=== PATIENT | female | born 1945 | race Caucasian/White ===

== ENCOUNTER 2016-09-30 07:27 | Outpatient (CLI) | payer BC, MEDICARE ==
--- NOTE | 2016-09-30 10:04 | Cat Scan Report ---
CT scan of the abdomen without IV contrast: History: Abdominal pain, ascites. Findings: Several circumscribed hypodensities liver measuring up to 2 cm in diameter suggestive of probably cysts. Patient status post cholecystectomy. Normal pancreas and spleen. Thickened wall of the stomach and duodenum probably suggestive of peptic disease. Normal adrenals. Circumscribed exophytic 1.4 cm hypodensity left kidney probably cysts. No radiopaque calculi the kidney parenchyma. No evidence of adenopathy. Normal aorta. Gaseous colon with moderate volume stool in colon. No free intraperitoneal fluid or air. Next Impression: Probable peptic disease. Hypodensities liver probably cysts. Hypodensity left kidney probably cyst.
== END 2016-09-30 07:28 | disposition home or self-care (01) ==
LOC: CT 07:27
PROVIDERS: ATTEND Internal Medicine
DX: R18.8 Other ascites (principal); R10.9 Unspecified abdominal pain; Z90.49 Acquired absence of other specified parts of digestive tract
CPT/HCPCS: 74150

== ENCOUNTER 2016-11-21 10:41 | Outpatient (CLI) | payer BC, MEDICARE ==
--- NOTE | 2016-11-21 12:06 | Ultrasound Report ---
Left breast ultrasound: The patient presents with history of MRI findings had an outside facility demonstrating focal enhancement in the lateral left breast not seen on prior ultrasound in March 2016. This serves as a followup. Imaging of the entire lateral aspect of the left breast fails to identify any echogenic abnormality at this time. Impression: No focal abnormal findings on targeted left breast ultrasound. A Recommendation: Followup should be based on your concern of MRI findings in the absence of the ultrasound findings. BI-RADS CATEGORY: 1 = Negative ACR BI-RADS MAMMOGRAPHIC CODES: 0 = Needs additional imaging evaluation; 1 = Negative; 2 = Benign; 3 = Probably benign; 4 = Suspicious; 5 = Malignant; 6 = Known biopsy-proven malignancy COMMENT: 1. Dense breast tissue, i.e., adenosis, fibrocystic changes, etc., may obscure an underlying neoplasm. 2. Approximately 10% of cancers are not detected with mammography. 3. A negative mammography report should not delay biopsy if a clinically suspicious mass is present.
== END 2016-11-21 10:42 | disposition home or self-care (01) ==
LOC: SPVWC 10:41
PROVIDERS: ATTEND Internal Medicine Hematology & Oncology
DX: R92.8 Other abnormal and inconclusive findings on diagnostic imaging of breast (principal); C50.211 Malignant neoplasm of upper-inner quadrant of right female breast; F41.1 Generalized anxiety disorder

== ENCOUNTER 2017-03-03 10:03 | Outpatient (CLI) | payer BC, MEDICARE ==
[2017-03-03 10:44] LABS: Blood Urea Nitrogen 8 mg/dL (7-17)
--- NOTE | 2017-03-03 11:54 | Magnetic Resonance Report ---
MR ABDOMEN WITH AND WITHOUT CONTRAST HISTORY: Abdominal pain. TECHNIQUE: Multiple T1 and T2-weighted images with and without fat suppression. Postcontrast dynamic imaging following 15 cc of Multihance intravenously. FINDINGS: Correlation is made with the noncontrast CT of the abdomen dated 09/30/16. The liver is normal size and contour. A left hepatic lobe cyst measures 1.5 cm. A right hepatic lobe cyst measures 1.3 cm. There also appears to be a 1 cm cavernous hemangioma in the right hepatic lobe. No evidence for suspicious liver mass, enlargement or surface nodularity. The gallbladder has been surgically removed. No biliary dilatation. Normal pancreas, spleen and adrenal glands. There are scattered bilateral renal cysts measuring up to 1.5 cm. A 1.5 cm cyst in the mid left kidney demonstrates mild hemorrhagic change. There is no evidence for renal mass or hydronephrosis. The visualized intestinal loops are normal caliber and wall thickness. The appendix is not included. The aorta is normal caliber. No evidence for ascites, acute inflammation or adenopathy. IMPRESSION: No clear explanation for abdominal pain. Liver cysts and liver hemangioma. Bilateral renal cysts as described. Cholecystectomy.
== END 2017-03-03 10:04 | disposition home or self-care (01) ==
LOC: MRI 10:03
PROVIDERS: ATTEND Internal Medicine Gastroenterology
DX: N28.1 Cyst of kidney, acquired (principal); K76.0 Fatty (change of) liver, not elsewhere classified; K59.00 Constipation, unspecified; K76.89 Other specified diseases of liver; D18.09 Hemangioma of other sites; Z90.49 Acquired absence of other specified parts of digestive tract; Z86.010 Personal history of colon polyps
CPT/HCPCS: 36415; 74183; 82565; 84520; A9577

== ENCOUNTER 2017-03-15 06:10 | Day surgery (SDC) | payer BC, MEDICARE ==
[2017-03-15] MEDS ORDERED: NACL 0.9% 1000 ML 1,000 ML ONE (07:18)
--- NOTE | 2017-03-15 07:31 | Anesthesia Consultation ---
Anesthesia Consult and Med Hx Date of service: 03/15/17 - Airway Anesthetic Teeth Evaluation: Dentures (upper) ROM Head & Neck: Adequate Mental/Hyoid Distance: Adequate Mallampati Class: Class I Intubation Access Assessment: Good - Pulmonary Exam CTA: Yes - Cardiac Exam Cardiac Exam: RRR - Pre-Operative Health Status ASA Pre-Surgery Classification: ASA2 Proposed Anesthetic Plan: MAC - Other Systems Hx Cancer: Yes (Right Breast CA s/p mastectomy )
--- NOTE | 2017-03-15 07:32 | Anesthesia Day of Surgery ---
Anesthesia Day of Surgery - Day of Surgery Patient Examined: Yes Patient H&P Reviewed: Yes Patient is NPO: Yes
[2017-03-15] MEDS ORDERED: DIPRIVAN 10 MG/ML IV ONE ×2 (07:34)
[2017-03-15] MEDS ORDERED: WATER FOR IRRIG STERILE IR ONE (07:35)
[2017-03-15] MEDS ORDERED: WATER FOR IRRIG STERILE ONE (07:35)
--- NOTE | 2017-03-15 08:34 | Short Stay Summary ---
Short Stay Documentation Date of service: 03/15/17 Narrative H&P: Ms Shankar is a 71 yo female who presents for outpatient egd and colonoscopy. She has a h/o HP and intestinal metaplasia on prior EGD. She has chronic abdominal pain and constipation. She has a h/o TV adenoma on colonoscopy ~5 years ago. Denies gi bleeding or weight loss. - History H&P: obtained from office Past Medical History: other (see H&P) Past Surgical History: Other (see H&P) Social history: no significant social history - Allergies and Medications Current Medications: Allergies No Known Allergies Allergy (Verified 03/14/17 13:41) Home Medications Medication Instructions Recorded Confirmed Last Taken Type Anastrozole (Nf) 1 mg PO DAILY 03/14/17 03/15/17 03/14/17 History Citalopram 20 mg PO DAILY 03/14/17 03/15/17 03/14/17 History Clonazepam 1 mg PO PRN PRN 03/14/17 03/15/17 Unknown History Dicyclomine 20 mg PO DAILY 03/14/17 03/14/17 Unknown History Hyoscyamine Sulfate 0.125 mg PO DAILY 03/14/17 03/14/17 Unknown History Omeprazole 40 mg PO DAILY 03/14/17 03/15/17 03/14/17 History - Physical exam General appearance: no acute distress Lungs: Clear to auscultation Heart: Regular rate, Normal S1, Normal S2 Gastrointestinal: normal, normoactive bowel sounds Extremities: No edema, Full ROM - Brief post op/procedure progress note Date of procedure: 03/15/17 Pre-op diagnosis: dyspepsia, surveillance colonoscopy (history of colon polyps) Post-op diagnosis: other (gastritis, colon polyp) Procedure: EGD with biopsies (gastritis) r/o HP Colonoscopy: 1 colon polyp removed, diverticulosis Anesthesia: MAC Findings: EGD: gastritis Colonoscopy: polyp, diverticulosis Surgeon: MAGALI TOLLIVER Estimated blood loss: minimal Pathology: list (Jar A - gastric biopsies, Jar B - colon polyp (descending colon )) Specimen disposition: to lab Condition: stable - Disposition Disposition: TO HOME OR SELFCARE Short Stay Discharge Plan Follow up with: RAO AGUILAR MD [Primary Care Provider] - 7 Days
--- NOTE | 2017-03-15 08:37 | Operative Report ---
Operative Report Operative Report: EGD with Biopsies Date of procedure: 03/15/2017 Endoscopist: Dylan Gardner Pre-op diagnosis: dyspepsia, h/o gastric intestinal metaplasia Post-op diagnosis: gastritis MAC: Monitored anesthesia care Complications: no immediate complications Estimated blood loss: minimal Procedure: After consent was obtained, the patient was placed in the left lateral decubitus position. The upper fujinon endoscope was inserted into the patient's mouth under direct vision, and advanced to the 2nd portion of duodenum without difficulty. The patient tolerated the procedure well. The patient's vital signs were monitored continously throughout the procedure. Findings: The esophagus appeared normal. Mild erythematous mucosa in the gastric body and antrum. Biopsies were obtained to evaluate for H pylori. Otherwise, the stomach appeared normal. The duodenum appeared normal. Impression: 1. Gastritis. Biopsied Recommendations: -follow-up pathology -treat for H pylori if biopsies positive -avoid NSAIDs -colonoscopy to follow
--- NOTE | 2017-03-15 08:39 | Post Anesthesia Evaluation ---
- Post Anesthesia Evaluation Patient Participated: Yes Airway Patent: Yes Stable Respiratory Function: Yes Temp > 96.8F: Yes Pain Manageable: Yes Adequeate Hydration: Yes Anesthesia Complications: No
--- NOTE | 2017-03-15 08:40 | Operative Report ---
Operative Report Operative Report: Colonoscopy with snare polypectomy Date of procedure: 03/15/2017 Endoscopist: Dylan Gardner Pre-op diagnosis: surveillance colonoscopy (personal history of tubulovillous adenoma) Post-op diagnosis: colon polyp, diverticulosis MAC: Monitored anesthesia care Complications: no immediate complications Estimated blood loss: minimal Procedure: After consent was obtained, the patient was placed in the left lateral decubitus position. The pediatric fujinon colonoscope was inserted into the patient's rectum under direct vision, and advanced to the cecum without difficulty. The patient tolerated the procedure well. The patient's vital signs were monitored continously throughout the procedure. The quality of prep was good. Findings: There was one sessile polyp, ~6 mm, in the descending colon. The polyp was removed with cold snare polypectomy. The polyp was retrieved. Left sided diverticulosis. Impression: 1. Colon polyp removed as above 2. Diverticulosis Recommendations: -follow-up pathology -high fiber diet daily -repeat colonoscopy for surveillance in 3-5 years (based on pathology results) -return to GI clinic as previously scheduled
[2017-03-15 08:57] VITALS: BP 165/58
[2017-03-15] MEDS ORDERED: ROBINUL ONE (10:00)
[2017-03-15] MEDS ORDERED: XYLOCAINE MPF 2% ONE (10:00)
== END 2017-03-15 06:11 | disposition home or self-care (01) ==
LOC: GIO 06:10
PROVIDERS: ATTEND Internal Medicine Gastroenterology
DX: Z09 Encounter for follow-up examination after completed treatment for conditions other than malignant neoplasm (principal); K63.5 Polyp of colon; K29.40 Chronic atrophic gastritis without bleeding; K57.30 Diverticulosis of large intestine without perforation or abscess without bleeding; F41.9 Anxiety disorder, unspecified; F32.9 Major depressive disorder, single episode, unspecified; Z90.710 Acquired absence of both cervix and uterus; Z86.010 Personal history of colon polyps; Z85.038 Personal history of other malignant neoplasm of large intestine; Z90.49 Acquired absence of other specified parts of digestive tract; Z90.10 Acquired absence of unspecified breast and nipple; Z79.899 Other long term (current) drug therapy; Z85.3 Personal history of malignant neoplasm of breast
CPT/HCPCS: 43239; 45385; 88305; 88342; J2704; J7030

== ENCOUNTER 2017-05-03 12:00 | Outpatient (CLI) | payer BC, MEDICARE ==
--- NOTE | 2017-05-03 13:18 | Mammography Report ---
LEFT DIGITAL DIAGNOSTIC MAMMOGRAM WITH CAD: 05/03/17 12:00:00 CLINICAL: Breast cancer survivor status post right mastectomy. Previous left benign biopsy. COMPARISON:06/01/16 mammogram from [facility] FINDINGS: The breast is mostly fatty with a few retroareolar heterogeneously dense fibroglandular densities.A slightly inner lower biopsy clip with an asymmetry of the clip. No mass, architectural distortion or suspicious calcifications. IMPRESSION: No mammographic evidence of malignancy. BI-RADS CATEGORY: 2 -- Benign RECOMMENDATION: Routine mammographic screening. ACR BI-RADS MAMMOGRAPHIC CODES: 0 = Needs additional imaging evaluation; 1 = Negative; 2 = Benign; 3 = Probably benign; 4 = Suspicious; 5 = Malignant; 6 = Known biopsy-proven malignancy COMMENT: 1. Dense breast tissue, i.e., adenosis, fibrocystic changes, etc., may obscure an underlying neoplasm. 2. Approximately 10% of cancers are not detected with mammography. 3. A negative mammography report should not delay biopsy if a clinically suspicious mass is present. COMMENT: Patient follow-up letters are generated via our [employer] Nurse Navigator application.
--- NOTE | 2017-05-04 08:16 | Cat Scan Report ---
CT CHEST WITH CONTRAST: 05/03/17 12:00:00 CLINICAL: History of right breast cancer status post right mastectomy. Swelling and pain at the right fourth rib. Comparison: None. TECHNIQUE: Volumetric acquisition and 1.25 mm scan reconstructions after the uneventful intravenous injection of 100cc Omnipaque 300. Consent was obtained prior to the administration of contrast. FINDINGS: Status post right mastectomy with normal chest wall and ribs. The lungs are normally expanded and clear. No pulmonary nodule or mass. Normal heart and aorta. No hilar or mediastinal lymphadenopathy. No pleural effusion. Normal thyroid, trachea and esophagus. No axillary or supraclavicular lymphadenopathy. Status post cholecystectomy. Benign hepatic cysts. The largest cyst is in the right lobe at the diaphragm contiguous to cavoatrial junction and measures 2 cm. IMPRESSION: 1. Status post right mastectomy with normal chest wall and ribs. 2. No explanation for pain and swelling at the right fourth rib. 3. No evidence of disease recurrence or metastasis. 4. Benign hepatic cysts. 5. Status post cholecystectomy.
--- NOTE | 2017-05-05 07:46 | Cat Scan Report ---
CT UPPER EXTREMITY LEFT WITHOUT CONTRAST HISTORY: Breast cancer, right shoulder pain, right axillary pain, right fourth rib pain and swelling. TECHNIQUE: Helical CT with sagittal and coronal reformatted images to the right shoulder. FINDINGS: Correlation is made with the CT chest with contrast performed the same day. The right mastectomy changes are partially imaged on this exam. No abnormality is detected in the right upper chest or right axillary region. No inflammation, mass or adenopathy. The bony structures are borderline osteopenic. There are mild age-appropriate osteoarthritic changes at the right shoulder but no evidence for fracture, malalignment or bone lesion. The rotator cuff is grossly intact on CT. No large joint effusion. IMPRESSION: Essentially unremarkable CT of the right shoulder for age. Minor osteoarthritic changes are identified. No evidence for mass, adenopathy, fracture or inflammation.
== END 2017-05-03 12:01 | disposition home or self-care (01) ==
LOC: CT 12:00
DX: R92.8 Other abnormal and inconclusive findings on diagnostic imaging of breast (principal); M19.011 Primary osteoarthritis, right shoulder; K76.89 Other specified diseases of liver; J98.6 Disorders of diaphragm; Z90.11 Acquired absence of right breast and nipple; Z90.49 Acquired absence of other specified parts of digestive tract
CPT/HCPCS: 71260; 73200; 77065; Q9967

== ENCOUNTER 2017-09-18 06:53 | Day surgery (SDC) | payer BC, MEDICARE ==
[2017-09-18] MEDS ORDERED: ZOFRAN IV PRN (09:12)
--- NOTE | 2017-09-18 09:13 | Anesthesia Day of Surgery ---
Anesthesia Day of Surgery - Day of Surgery Patient Examined: Yes Patient H&P Reviewed: Yes Patient is NPO: Yes
--- NOTE | 2017-09-18 09:14 | Anesthesia Consultation ---
Anesthesia Consult and Med Hx Date of service: 09/18/17 - Airway Anesthetic Teeth Evaluation: Good ROM Head & Neck: Adequate Mental/Hyoid Distance: Adequate Mallampati Class: Class II Intubation Access Assessment: Probably Good - Pulmonary Exam CTA: Yes - Cardiac Exam Cardiac Exam: RRR - Pre-Operative Health Status ASA Pre-Surgery Classification: ASA3 Proposed Anesthetic Plan: General - Other Systems Hx Cancer: Yes (Right Breast CA s/p mastectomy )
[2017-09-18] MEDS ORDERED: ANCEF/STERILE WATER 2 GM/20 ML IV NR (09:18)
[2017-09-18] MEDS ORDERED: VERSED IV NR (10:00)
[2017-09-18] MEDS ORDERED: LACTATED RINGERS 1,000 ML IV SCH (10:00)
[2017-09-18] MEDS ORDERED: SUBLIMAZE ONE (11:15)
[2017-09-18] MEDS ORDERED: DIPRIVAN 10 MG/ML IV ONE (11:15)
[2017-09-18] MEDS ORDERED: XYLOCAINE MPF 2% ONE (11:17)
[2017-09-18] MEDS ORDERED: ZOFRAN ONE (11:36)
[2017-09-18] MEDS ORDERED: DECADRON ONE (12:05)
--- NOTE | 2017-09-18 12:21 | Operative Report ---
PREOPERATIVE DIAGNOSES: 1. Right chest wall pannus. 2. Intertrigo. 3. Cicatrix. 4. History of breast cancer, status post right modified radical mastectomy. 5. Acquired breast deformity. POSTOPERATIVE DIAGNOSES: 1.Right chest wall pannus. 2.Intertrigo. 3.Cicatrix. 4.History of breast cancer, status post right modified radical mastectomy. 5.Acquired breast deformity. PROCEDURE: Right chest wall lumpectomy. SURGEON: Garth Fox MD ACCESS CONTROL SPECIALIST: DANTE Wiley. DESCRIPTION OF PROCEDURE: The patient was brought to the operating room, placed on the table in supine position. Following administration of general anesthesia, the right chest was prepped with Betadine solution, draped in usual sterile manner. Following preoperative markings. Circumferential incision was made around the chest wall pannus, deepened through skin and subcutaneous fat using scalpel and electrocautery. Tissue sent to pathology as specimen. Hemostasis controlled using electrocautery. Closure was performed over 10 mm STEPHANIE drain using interrupted and running subcuticular 3-0 Monocryl sutures followed by Mastisol, Steri-Strips, sterile dressing. The patient tolerated procedure well and returned to recovery room in stable condition. JOB# [id number] FTW/RUPAL
[2017-09-18] MEDS: DILAUDID IV PRN ×2 (13:12→14:20)
[2017-09-18 15:09] VITALS: BP 146/59
--- NOTE | 2017-09-18 17:48 | Post Anesthesia Evaluation ---
- Post Anesthesia Evaluation Patient Participated: Yes Airway Patent: Yes Stable Respiratory Function: Yes Nausea/Vomiting: No Temp > 96.8F: Yes Pain Manageable: Yes Adequeate Hydration: Yes Anesthesia Complications: No
--- NOTE | 2017-09-18 18:48 | Discharge Summary ---
Short Stay Discharge Plan Activity: no restrictions Weight Bearing Status: Full Weight Bearing Diet: regular Wound: remove dressing (72hrs) Additional Instructions: FOLLOW UP WITH DR. MCKEON IN 1 WEEK. REMOVE EXTERNAL DRESSING (TAPE AND GAUZE) IN 3 DAYS (09/21/17). LEAVE STERI- STRIPS INTACT. OK TO SHOWER WHEN EXTERNAL DRESSING HAS BEEN REMOVED. Follow up with: JOANN MCKEON JR, MD [Staff Physician] - 7 Days RAO AGUILAR MD [Primary Care Provider] - 6 Weeks Forms: Outpatient Surgery DC Inst.
--- NOTE | 2017-09-18 18:49 | Short Stay Summary ---
Short Stay Documentation Date of service: 09/18/17 - Allergies and Medications Current Medications: Allergies gabapentin Adverse Reaction (Verified 09/18/17 08:18) Nausea PT STATES INSOMNIA, INCREASED HEART RATE oxycodone Adverse Reaction (Verified 09/18/17 08:18) Unknown PT STATES HEART RACES AND SHE GETS NAUSEATED Home Medications Medication Instructions Recorded Confirmed Last Taken Type Anastrozole (Nf) 1 mg PO DAILY 03/14/17 09/18/17 09/18/17 06:00 History Citalopram 20 mg PO DAILY 03/14/17 09/18/17 09/17/17 History Clonazepam 1 mg PO PRN PRN 03/14/17 09/18/17 09/17/17 History Dicyclomine 20 mg PO DAILY PRN 03/14/17 09/18/17 4 Months Ago History ~05/21/17 Hyoscyamine Sulfate 0.125 mg PO DAILY PRN 03/14/17 09/18/17 3 Months Ago History ~06/18/17 Omeprazole 40 mg PO DAILY PRN 03/14/17 09/18/17 3 Days Ago History ~09/15/17 Denosumab [Prolia] 60 mg SUB-Q [id number] 09/18/17 09/18/17 5 Months Ago History ~04/20/17 Linzess 290 mcg PO PRN PRN 09/18/17 09/18/17 2 Months Ago History ~07/19/17 traMADol 50 mg PO PRN PRN MDD 50 09/18/17 09/18/17 3 Days Ago History ~09/15/17 - Brief post op/procedure progress note Date of procedure: 09/18/17 Pre-op diagnosis: Panniculitis/Intertrigo/Breast Cancer Hx Post-op diagnosis: same Procedure: RT Chestwall Lipectomy Anesthesia: GETA Surgeon: JOANN MCKEON JR Estimated blood loss: minimal Specimen disposition: to lab Condition: stable - Disposition Condition at discharge: Good Disposition: [id number] TO HOME OR SELFCARE Short Stay Discharge Plan Additional Instructions: FOLLOW UP WITH DR. MCKEON IN 1 WEEK. REMOVE EXTERNAL DRESSING (TAPE AND GAUZE) IN 3 DAYS (09/21/17). LEAVE STERI- STRIPS INTACT. OK TO SHOWER WHEN EXTERNAL DRESSING HAS BEEN REMOVED. Follow up with: JOANN MCKEON JR, MD [Staff Physician] - 7 Days LAUREN,RAO L, MD [Primary Care Provider] - 6 Weeks Forms: Outpatient Surgery DC Inst.
== END 2017-09-18 16:24 | disposition home or self-care (01) ==
LOC: OR 06:53
PROVIDERS: ATTEND Plastic Surgery
DX: L90.5 Scar conditions and fibrosis of skin (principal); N64.89 Other specified disorders of breast; F32.9 Major depressive disorder, single episode, unspecified; Z86.718 Personal history of other venous thrombosis and embolism; Z85.3 Personal history of malignant neoplasm of breast; Z90.11 Acquired absence of right breast and nipple; Z79.01 Long term (current) use of anticoagulants; Z88.5 Allergy status to narcotic agent
CPT/HCPCS: 19260; 88305; J0690; J1100; J1170; J2250; J2405; J2704; J3010; J7120; 88307

== ENCOUNTER 2018-05-02 10:51 | Outpatient (CLI) | payer BC, MEDICARE ==
[2018-05-02 11:15] LABS: Hematocrit 42.1 % (30.3-42.9); Hemoglobin 14.3 gm/dl (10.1-14.3); Mean Corpuscular HGB Conc 34 % (30-34); Mean Corpuscular Volume 90 fl (79-97); Platelet Count 229 K/mm3 (140-440); Red Blood Count 4.68 M/mm3 (3.65-5.03); Red Cell Distribution Width 13.6 % (13.2-15.2)
[2018-05-02 11:36] LABS: Alanine Aminotransferase 21 units/L (7-56); BUN/Creatinine Ratio 19; Blood Urea Nitrogen 13 mg/dL (7-17); Calcium 9.4 mg/dL (8.4-10.2); Hemolysis Index 5
--- NOTE | 2018-05-02 12:08 | Mammography Report ---
BONE DENSITY STUDY: Breast malignancy. DEFINITIONS: BMD = Bone Mineral Density T-score = BMD related to mean peak bone mass of young adult (mean expressed in Standard Deviation) Z-score = Age matched BMD expressed in SD World Health Organization (WHO) Diagnostic Criteria Normal T-score > -1 SD Osteopenia T-score between -1 and -2.4 SD Osteoporosis T-score -2.5 SD or below FINDINGS: The weighted average BMD of lumbar spine L1-L4 is 0.781 with a T-score of -2.4. The weighted average BMD of hip is 0.853 with a T-score of -0.7. The femoral neck BMD is 0.585 with a T. value score of -2.4. IMPRESSION: patient's average T-score is diagnostic for osteopenia and average relative risk for fracture. It is of note that this patient is on the borderline for being osteoporotic. NOTE: BMD is not the only risk factor for fracture; also consider factors such as the patient's age, risk of falling, previous osteoporotic fracture, family history of osteoporotic fractures, current smoker, and low body weight. Garrison's triangle is a region of interest in femur, predominantly of trabecular bone. It is not a true anatomic site, and ISCD does not recommend its use clinically.
== END 2018-05-02 10:52 | disposition home or self-care (01) ==
LOC: MAMMO 10:51
PROVIDERS: ATTEND Internal Medicine Hematology & Oncology
DX: C50.411 Malignant neoplasm of upper-outer quadrant of right female breast (principal); M85.88 Other specified disorders of bone density and structure, other site; K21.9 Gastro-esophageal reflux disease without esophagitis; Z90.49 Acquired absence of other specified parts of digestive tract; Z90.710 Acquired absence of both cervix and uterus; Z90.12 Acquired absence of left breast and nipple
CPT/HCPCS: 36415; 77080; 80053; 84443; 85027

== ENCOUNTER 2018-08-03 10:23 | Day surgery (SDC) | payer BC, MEDICARE ==
[2018-08-03] MEDS ORDERED: NEOSPORIN GU IR ONE (11:13)
[2018-08-03] MEDS ORDERED: LACTATED RINGERS 1,000 ML ONE (11:28)
--- NOTE | 2018-08-03 12:12 | Anesthesia Consultation ---
Anesthesia Consult and Med Hx Date of service: 08/03/18 - Airway Anesthetic Teeth Evaluation: Good ROM Head & Neck: Adequate Mental/Hyoid Distance: Adequate Mallampati Class: Class II Intubation Access Assessment: Good - Pulmonary Exam CTA: Yes - Cardiac Exam Cardiac Exam: RRR - Pre-Operative Health Status ASA Pre-Surgery Classification: ASA3 Proposed Anesthetic Plan: General - Pulmonary Hx Smoking: Yes (STOPPED 2001) Hx Asthma: No Hx Sleep Apnea: No (LILY PRE SCREEN LOW RISK) - Cardiovascular System Hx Hypertension: No - Central Nervous System Hx Neuromuscular Disorder: No - Endocrine Hx Renal Disease: No Hx End Stage Renal Disease: No Hx Liver Disease: Yes (FATTY LIVER) - Other Systems Hx Cancer: Yes (Right Breast CA s/p mastectomy )
[2018-08-03] MEDS ORDERED: SUBLIMAZE IV PRN (12:13)
[2018-08-03] MEDS ORDERED: ZOFRAN IV PRN (12:13)
[2018-08-03] MEDS ORDERED: NARCAN 0.4 MG/1 ML IV PRN (12:13)
--- NOTE | 2018-08-03 12:13 | Anesthesia Day of Surgery ---
Anesthesia Day of Surgery - Day of Surgery Patient Examined: Yes Patient H&P Reviewed: Yes Patient is NPO: Yes Beta Blockers: No Cardiac Clearance: No Pulmonary Clearance: No
[2018-08-03] MEDS ORDERED: MARCAINE 0.5% INFILTRATI ONE ×3 (12:39→13:37)
[2018-08-03] MEDS ORDERED: DEPO-Medrol ONE (12:39)
[2018-08-03] MEDS ORDERED: SUBLIMAZE ONE (12:49)
[2018-08-03] MEDS ORDERED: XYLOCAINE MPF 2% ONE (12:49)
[2018-08-03] MEDS ORDERED: DIPRIVAN 10 MG/ML IV ONE (12:49)
[2018-08-03] MEDS ORDERED: ZOFRAN ONE (12:49)
[2018-08-03] MEDS ORDERED: DECADRON ONE (12:49)
[2018-08-03] MEDS ORDERED: LACTATED RINGERS 1,000 ML IV SCH (13:00)
[2018-08-03] MEDS ORDERED: ANCEF/STERILE WATER 2 GM/20 ML IV NR (13:00)
[2018-08-03] MEDS ORDERED: DEPO-Medrol INTRA-ARTI ONE (13:36)
[2018-08-03] MEDS: DILAUDID IV PRN ×4 (14:09→15:09)
--- NOTE | 2018-08-03 15:02 | Procedure Note ---
Date of procedure: 08/03/18 Pre-op diagnosis: trigger finger left thumb Post-op diagnosis: same Procedure: Trigger finger release left thumb Procedure The patient was brought to the OR placed on table in supine position following induction with Mac anesthesia the patient's left upper extremity was prepped and draped in the usual sterile manner. A timeout procedure was done to identify the patient and the correct operative site. The right thumb received an intra- articular injection with 40 mg of Depo-Medrol and half percent Marcaine into the metacarpal phalangeal joint. The left upper extremity was then exsanguinated followed by inflation of the pneumatic tourniquet to 250 mmHg. An incision was made at the A1 anitha level using loupe magnification incision was taken down through skin and subcutaneous care was taken to visualize the neurovascular structures the flexor tendon was seen and the A1 anitha sheath was incised with the 15 blade and tenotomy scissors care was taken to release as much restricting tissue as possible next the wound was irrigated copiously and was closed in a standard routine fashion. Dressings were applied patient tolerated the procedure there were no complications Anesthesia: MAC Surgeon: KENTRELL MCKEON Team Driver: CAROLINE RUSSELL Estimated blood loss: minimal Pathology: none Condition: stable Disposition: PACU
[2018-08-03 16:26] VITALS: BP 158/62
== END 2018-08-03 16:10 | disposition home or self-care (01) ==
LOC: OR 10:23
PROVIDERS: ATTEND Orthopaedic Surgery
DX: M65.312 Trigger thumb, left thumb (principal); K21.9 Gastro-esophageal reflux disease without esophagitis; F32.9 Major depressive disorder, single episode, unspecified; F41.9 Anxiety disorder, unspecified; Z80.8 Family history of malignant neoplasm of other organs or systems; Z79.899 Other long term (current) drug therapy; Z87.891 Personal history of nicotine dependence; Z90.49 Acquired absence of other specified parts of digestive tract; Z85.3 Personal history of malignant neoplasm of breast; Z90.11 Acquired absence of right breast and nipple; Z90.710 Acquired absence of both cervix and uterus; Z98.890 Other specified postprocedural states; Z88.8 Allergy status to other drugs, medicaments and biological substances
CPT/HCPCS: 20600; 26055; J0690; J1030; J1100; J1170; J2405; J2704; J3010; J7120

== ENCOUNTER 2018-10-12 16:42 | Emergency (ER) | payer BC, MEDICARE ==
[2018-10-12 19:38] LABS: Basophils % (Auto) 0.5 % (0.0-1.8); Eosinophils # (Auto) 0.1 K/mm3 (0.0-0.4); Eosinophils % (Auto) 1.1 % (0.0-4.3); Hematocrit 42.5 % (30.3-42.9); Hemoglobin 14.2 gm/dl (10.1-14.3); Lymphocytes # (Auto) 1.6 K/mm3 (1.2-5.4); Lymphocytes % (Auto) 15.8 % (13.4-35.0); Mean Corpuscular HGB Conc 33 % (30-34); Mean Corpuscular Volume 91 fl (79-97); Monocytes # (Auto) 0.7 K/mm3 (0.0-0.8); Platelet Count 226 K/mm3 (140-440); Red Blood Count 4.68 M/mm3 (3.65-5.03); Red Cell Distribution Width 14.5 % (13.2-15.2)
--- NOTE | 2018-10-12 20:07 | Emergency Department Report ---
ED Female HPI - General Chief complaint: Urogenital-Female Stated complaint: BACK PAIN/CYST Time Seen by Provider: 10/12/18 19:04 Source: patient Mode of arrival: Ambulatory Limitations: No Limitations - History of Present Illness Initial comments: Patient is a 73-year-old female with history of recurrent cystitis and urinary retention who presents from urinary retention times this a.m. states unable/12:00 today Secondary history of constipation patient denies nausea vomiting no fevers no chills Complaint: dysuria Onset/Timin -: days(s) Location: suprapubic Radiation: LLQ, RLQ Severity: moderate Severity scale (0 -10): 4 (spasm) Quality: cramping Consistency: constant Improves with: urination Worsens with: none Are you Now?: No - Related Data Home Medications Medication Instructions Recorded Confirmed Last Taken Anastrozole (Nf) 1 mg PO DAILY 03/14/17 08/03/18 08/02/18 09:00 Citalopram 20 mg PO DAILY 03/14/17 08/03/18 08/02/18 09:00 Clonazepam 1 mg PO PRN PRN 03/14/17 08/01/18 03/15/18 Omeprazole 40 mg PO PRN PRN 03/14/17 08/01/18 03/15/18 Linzess 290 mcg PO PRN PRN 09/18/17 08/01/18 03/09/18 Previous Rx's Medication Instructions Recorded Last Taken Type HYDROcodone/APAP 5-325 [[place] 1 each PO Q4HR PRN #20 tablet 08/03/18 Unknown Rx 5-325 mg TAB] Bisacodyl [Dulcolax suppos] 10 mg AL QDAY PRN #5 supp.rect 10/12/18 Unknown Rx Ciprofloxacin HCl [Ciprofloxacin 500 mg PO BID 10 Days #20 tab 10/12/18 Unknown Rx TAB] Polyethylene Glycol 3350 [Miralax 17 gm PO BID PRN #14 packet 10/12/18 Unknown Rx 3350] Allergies Allergy/AdvReac Type Severity Reaction Status Date / Time gabapentin Allergy Nausea,INCREASED Verified 10/12/18 16:45 HEART RATE,INSOMNIA oxycodone Allergy HIGH HEART Verified 10/12/18 16:45 RATE, NAUSEA ED Review of Systems ROS: Stated complaint: BACK PAIN/CYST Other details as noted in HPI Constitutional: denies: chills, fever Eyes: denies: eye pain, eye discharge, vision change ENT: denies: ear pain, throat pain Respiratory: denies: cough, shortness of breath, wheezing Cardiovascular: denies: chest pain, palpitations Endocrine: no symptoms reported Gastrointestinal: denies: abdominal pain (superpubic , bilat Lower Quad ), nausea, vomiting, diarrhea Genitourinary: urgency, dysuria. denies: frequency, hematuria, discharge Musculoskeletal: denies: back pain, joint swelling, arthralgia Skin: denies: rash, lesions Neurological: denies: headache, weakness, paresthesias Psychiatric: denies: anxiety, depression Hematological/Lymphatic: denies: easy bleeding, easy bruising ED Past Medical Hx - Past Medical History Hx Hypertension: No Hx GERD: Yes (PRN MEDS) Hx Liver Disease: Yes (FATTY LIVER) Hx Renal Disease: No Hx Asthma: No Hx HIV: No - Surgical History Hx Cholecystectomy: Yes Hx Breast Surgery: Yes (BX 1986,2008,2015,2016) - Social History Smoking Status: Never Smoker Substance Use Type: None - Medications Home Medications: Home Medications Medication Instructions Recorded Confirmed Last Taken Type Anastrozole (Nf) 1 mg PO DAILY 03/14/17 08/03/18 08/02/18 09:00 History Citalopram 20 mg PO DAILY 03/14/17 08/03/18 08/02/18 09:00 History Clonazepam 1 mg PO PRN PRN 03/14/17 08/01/18 03/15/18 History Omeprazole 40 mg PO PRN PRN 03/14/17 08/01/18 03/15/18 History Linzess 290 mcg PO PRN PRN 09/18/17 08/01/18 03/09/18 History HYDROcodone/APAP 5-325 [[place] 1 each PO Q4HR PRN #20 tablet 08/03/18 Unknown Rx 5-325 mg TAB] Bisacodyl [Dulcolax suppos] 10 mg AL QDAY PRN #5 supp.rect 10/12/18 Unknown Rx Ciprofloxacin HCl [Ciprofloxacin 500 mg PO BID 10 Days #20 tab 10/12/18 Unknown Rx TAB] Polyethylene Glycol 3350 [Miralax 17 gm PO BID PRN #14 packet 10/12/18 Unknown Rx 3350] ED Physical Exam - General Limitations: No Limitations General appearance: alert, in no apparent distress - Head Head exam: Present: atraumatic, normocephalic - Eye Eye exam: Present: normal appearance, PERRL, EOMI Pupils: Present: normal accommodation - ENT ENT exam: Present: mucous membranes moist - Neck Neck exam: Present: normal inspection, full ROM. Absent: tenderness - Respiratory Respiratory exam: Present: normal lung sounds bilaterally. Absent: respiratory distress, wheezes, chest wall tenderness - Cardiovascular Cardiovascular Exam: Present: regular rate, normal rhythm, normal heart sounds. Absent: systolic murmur, diastolic murmur, rubs, gallop - GI/Abdominal GI/Abdominal exam: Present: distended (mild distended ), normal bowel sounds. Absent: tenderness, guarding, rebound, rigid, bruit, hernia - Rectal Rectal exam: Present: deferred - Extremities Exam Extremities exam: Present: normal inspection, full ROM, normal capillary refill. Absent: tenderness, pedal edema, joint swelling, calf tenderness - Back Exam Back exam: Present: normal inspection, full ROM. Absent: tenderness, CVA tenderness (R), CVA tenderness (L), muscle spasm, paraspinal tenderness, vertebral tenderness, rash noted - Neurological Exam Neurological exam: Present: alert, oriented X3, CN II-XII intact, normal gait, reflexes normal. Absent: motor sensory deficit - Psychiatric Psychiatric exam: Present: normal affect, normal mood - Skin Skin exam: Present: warm, dry, intact, normal color. Absent: rash ED Course Vital Signs 10/12/18 10/12/18 17:03 20:25 Temperature 97.5 F L 98.5 F Pulse Rate 85 91 H Respiratory 18 18 Rate Blood Pressure 128/64 Blood Pressure 110/62 [Left] O2 Sat by Pulse 94 98 Oximetry ED Medical Decision Making - Lab Data Result diagrams: 10/12/18 19:16 - Radiology Data Radiology results: report reviewed, image reviewed moderate constipation no evidence or obstruction - Medical Decision Making KUB: moderate constipation, no evidence of obstruction, bs normal, ua: urine approx 200 cc, UA: leuk, wbc, rbc, bacteria, plan: Miralax , dulcolax supp, Cipro po bid x 10 days, pt given rocephin 1gm IM in ed will follow up with pcp in 2-3 days , will return to ed if symptoms worsen or unable to void, , pt is voiding at this time. Critical care attestation.: If time is entered above; I have spent that time in minutes in the direct care of this critically ill patient, excluding procedure time. ED Disposition Clinical Impression: UTI (urinary tract infection) Qualifiers: Urinary tract infection type: acute cystitis Hematuria presence: without hematuria Qualified Code(s): N30.00 - Acute cystitis without hematuria Constipation Qualifiers: Constipation type: unspecified constipation type Qualified Code(s): K59.00 - Constipation, unspecified Disposition: TO HOME OR SELFCARE Is pt being admited?: No Does the pt Need Aspirin: No Condition: Stable Instructions: Urinary Tract Infection in Women (ED), Constipation (ED), High Fiber Diet (ED) Prescriptions: Ciprofloxacin HCl [Ciprofloxacin TAB] 500 mg PO BID 10 Days #20 tab Bisacodyl [Dulcolax suppos] 10 mg AL QDAY PRN #5 supp.rect PRN Reason: Constipation Polyethylene Glycol 3350 [Miralax 3350] 17 gm PO BID PRN #14 packet PRN Reason: Constipation Referrals: CHRISS COSTA MD [Primary Care Provider] - 3-5 Days Forms: Work/School Release Form(ED) Time of Disposition: 21:31
--- NOTE | 2018-10-12 20:44 | XRay Report ---
ABDOMEN 2 VIEW(S) INDICATION / CLINICAL INFORMATION: abd pain. COMPARISON: None available. FINDINGS: TUBES / LINES: None. BOWEL GAS PATTERN: Moderate amount of solid stool throughout colon characteristic for constipation. N o obstruction. FREE AIR / EXTRALUMINAL GAS: None seen. ADDITIONAL FINDINGS: Cholecystectomy clips right upper quadrant. IMPRESSION: 1. Moderate constipation. No acute abdominal disease Signer Name: Cordell Maki MD Signed: 10/12/2018 8:40 PM Workstation Name: [id number]
[2018-10-12] MEDS ORDERED: BENTYL IM ONE (20:57)
[2018-10-12 20:58] LABS: Bacteria,Urine 4+ /HPF (Negative); Mucus,Urine 3+ /HPF
[2018-10-12 20:59] LABS: Bilirubin,Urine NEG (Negative); Blood,Urine SM (Negative); Color,Urine Amber (Yellow); Urobilinogen,Urine < 2.0 mg/dL (<2.0)
[2018-10-12] MEDS ORDERED: XYLOCAINE 1% MPF 5 mL INFILTRATI ONE (21:24)
[2018-10-12] MEDS ORDERED: ROCEPHIN IM ONE (21:24)
[2018-10-12 22:11] VITALS: BP 134/62
== END 2018-10-12 22:23 | disposition home or self-care (01) ==
LOC: ED 16:42
DX: N30.90 Cystitis, unspecified without hematuria (principal); K59.00 Constipation, unspecified; K21.9 Gastro-esophageal reflux disease without esophagitis; Z87.19 Personal history of other diseases of the digestive system; Z90.49 Acquired absence of other specified parts of digestive tract; Z98.890 Other specified postprocedural states; Z88.8 Allergy status to other drugs, medicaments and biological substances; Z79.899 Other long term (current) drug therapy
CPT/HCPCS: 36415; 51702; 74018; 81001; 85025; 87076; 87086; 87186; 96372; 99284; J0500; J0696

== ENCOUNTER 2018-10-13 14:53 | Emergency (ER) | payer BC, MEDICARE ==
--- NOTE | 2018-10-13 15:04 | Event Note ---
ED Screening Note Date of service: 10/13/18 Time: 15:03 ED Screening Note: seen yesterday for the same abd pain and constipation. This initial assessment/diagnostic orders/clinical plan/treatment(s) is/are subject to change based on patients health status, clinical progression and re-assessment by fellow clinical providers in the ED. Further treatment and workup at subsequent clinical providers discretion. Patient/guardian urged not to elope from the ED as their condition may be serious if not clinically assessed and managed. Initial orders include:
[2018-10-13] MEDS ORDERED: NACL 0.9% 500 ML 500 ML ONE ×2 (15:06)
[2018-10-13] MEDS ORDERED: ROCEPHIN/NS 1 GM/50 ML 1 GM/50 ML BAG IV ONE (16:09)
[2018-10-13] MEDS ORDERED: ZOFRAN IV ONE (16:10)
[2018-10-13] MEDS ORDERED: NACL 0.9% 1000 ML 1,000 ML IV ONE (16:10)
[2018-10-13 16:55] LABS: Basophils % (Auto) 0.4 % (0.0-1.8); Eosinophils # (Auto) 0.1 K/mm3 (0.0-0.4); Eosinophils % (Auto) 1.4 % (0.0-4.3); Hematocrit 40.5 % (30.3-42.9); Hemoglobin 13.8 gm/dl (10.1-14.3); Lymphocytes % (Auto) 20.6 % (13.4-35.0); Mean Corpuscular HGB Conc 34 % (30-34); Mean Corpuscular Volume 90 fl (79-97); Monocytes # (Auto) 0.6 K/mm3 (0.0-0.8); Platelet Count 209 K/mm3 (140-440); Red Blood Count 4.51 M/mm3 (3.65-5.03); Red Cell Distribution Width 14.2 % (13.2-15.2)
--- NOTE | 2018-10-13 17:00 | Emergency Department Report ---
<COLE WOOTEN - Last Filed: 10/13/18 20:50> ED Abdominal Pain HPI - General Chief Complaint: Abdominal Pain Stated Complaint: CONSTIPATION Time Seen by Provider: 10/13/18 15:16 - Related Data Home Medications Medication Instructions Recorded Confirmed Last Taken Anastrozole (Nf) 1 mg PO DAILY 03/14/17 08/03/18 08/02/18 09:00 Citalopram 20 mg PO DAILY 03/14/17 08/03/18 08/02/18 09:00 Clonazepam 1 mg PO PRN PRN 03/14/17 08/01/18 03/15/18 Omeprazole 40 mg PO PRN PRN 03/14/17 08/01/18 03/15/18 Linzess 290 mcg PO PRN PRN 09/18/17 08/01/18 03/09/18 Previous Rx's Medication Instructions Recorded Last Taken Type HYDROcodone/APAP 5-325 [[place] 1 each PO Q4HR PRN #20 tablet 08/03/18 Unknown Rx 5-325 mg TAB] Bisacodyl [Dulcolax suppos] 10 mg OR QDAY PRN #5 supp.rect 10/12/18 Unknown Rx Ciprofloxacin HCl [Ciprofloxacin 500 mg PO BID 10 Days #20 tab 10/12/18 Unknown Rx TAB] Polyethylene Glycol 3350 [Miralax 17 gm PO BID PRN #14 packet 10/12/18 Unknown Rx 3350] Magnesium Citrate [Citroma] 296 ml PO ONCE #1 bottle 10/13/18 Unknown Rx Allergies Allergy/AdvReac Type Severity Reaction Status Date / Time gabapentin Allergy Nausea,INCREASED Verified 10/12/18 16:45 HEART RATE,INSOMNIA oxycodone Allergy HIGH HEART Verified 10/12/18 16:45 RATE, NAUSEA ED Past Medical Hx - Medications Home Medications: Home Medications Medication Instructions Recorded Confirmed Last Taken Type Anastrozole (Nf) 1 mg PO DAILY 03/14/17 08/03/18 08/02/18 09:00 History Citalopram 20 mg PO DAILY 03/14/17 08/03/18 08/02/18 09:00 History Clonazepam 1 mg PO PRN PRN 03/14/17 08/01/18 03/15/18 History Omeprazole 40 mg PO PRN PRN 03/14/17 08/01/18 03/15/18 History Linzess 290 mcg PO PRN PRN 09/18/17 08/01/18 03/09/18 History HYDROcodone/APAP 5-325 [[place] 1 each PO Q4HR PRN #20 tablet 08/03/18 Unknown Rx 5-325 mg TAB] Bisacodyl [Dulcolax suppos] 10 mg OR QDAY PRN #5 supp.rect 10/12/18 Unknown Rx Ciprofloxacin HCl [Ciprofloxacin 500 mg PO BID 10 Days #20 tab 10/12/18 Unknown Rx TAB] Polyethylene Glycol 3350 [Miralax 17 gm PO BID PRN #14 packet 10/12/18 Unknown Rx 3350] Magnesium Citrate [Citroma] 296 ml PO ONCE #1 bottle 10/13/18 Unknown Rx ED Medical Decision Making - Lab Data Result diagrams: 10/13/18 16:13 10/13/18 16:13 - Radiology Data Radiology results: report reviewed, image reviewed Ordering Physician: TORRIE KENT MD Date of Service: 10/13/18 Procedure(s): CT abdomen pelvis w con Accession Number(s): [id number] cc: TORRIE KENT MD CT ABDOMEN AND PELVIS WITH CONTRAST INDICATION: Pain CONTRAST: Unspecified dosage IV COMPARISON: 09/30/[address] scans at this location are performed using CT dose reduction for ALARA by means of automated exposure control. FINDINGS: Lung bases are clear of infiltrates. Small cysts and probable cysts are seen in the liver. Gallbladder has been removed. No biliary dilatation is seen. Pancreas appears within normal limits. Small bilateral renal cysts and probable cysts are noted. Appendix is not visualized. Mild increase in colonic stool burden is seen suggesting constipation. No evidence of bowel obstruction is seen. Small amount of nonspecific fluid is seen in the right colon. There is slight question of mild wall thickening in the proximal right colon though without definite surrounding inflammation and this may be artifactual. No lymphadenopathy is seen. No free fluid is noted. IMPRESSION: Probable mild constipation. I would have difficulty excluding mild right colitis though probably this is artifactual. Signer Name: Stephan Singh MD Signed: 10/13/2018 6:52 PM Workstation Name: [id number] Transcribed By: GJ Dictated By: Stephan Singh MD Electronically Authenticated By: Stephan Singh MD Signed Date/Time: 07/1851 DD/ 45 TD/TT: - Medical Decision Making ct : no obstruction moderate stool, pt given fleet enema in ed with some output pain is improved, pt rx for miralax and dulcolax at home, will follow up with GI, pt is currently a/o x 3 ambulatory tolerating po intake, no n/v no fever no chills pt dc't to home in stable conditions with family member at this time. ED Disposition Clinical Impression: Constipation Disposition: DC-01 TO HOME OR SELFCARE Is pt being admited?: No Does the pt Need Aspirin: No Condition: Stable Instructions: Constipation (ED), High Fiber Diet (ED), Abdominal Pain (ED) Prescriptions: Magnesium Citrate [Citroma] 296 ml PO ONCE #1 bottle Referrals: [facility] [Provider Group] - 3-5 Days Time of Disposition: 20:52 <TORRIE KENT - Last Filed: 11/01/18 05:35> ED Abdominal Pain HPI - General Source: patient Mode of arrival: Ambulatory Limitations: No Limitations - History of Present Illness Initial Comments: Reports that she came to the ER for same complaints yesterday where she was diagnosed with UTI. Reports compliant with cipro. Reports symptoms feel similar to a past diverticulitis. Reports hx appendectomy MD Complaint: abdominal pain -: days(s) (2 approximately) Location: suprapubic Radiation: none Migration to: no migration Severity: mild Severity scale (0 -10): 2 Quality: aching Consistency: intermittent Improves With: nothing Worsens With: nothing Associated Symptoms: nausea. denies: vomiting, diarrhea, fever, chills, constipation, dysuria, hematemesis, hematochezia, melena, hematuria, anorexia, syncope ED Review of Systems ROS: Stated complaint: CONSTIPATION Other details as noted in HPI Other: GENERAL: No weight change, fatigue, weakness, fever, chills, or night sweats SKIN: No changes in skin or hair, no itching, no rashes, no jaundice HEAD: No trauma, headache, or visual changes EYES: No blurriness, tearing, itching, acute visual loss, conjunctival discoloration, or scleral icterus EARS: No hearing loss, tinnitus, vertigo, or earache NOSE: No rhinorrhea, stuffiness, sneezing, itching, or epistaxis MOUTH: No bleeding gums, hoarseness, sore throat, or swelling CARDIAC: No new murmur, chest pain, palpitations, dyspnea on exertion, orthopnea, PND, or edema RESPIRATORY: No shortness of breath, wheeze, cough, sputum production, hemoptysis, pneumonia, asthma, bronchitis, or emphysema GI: Abdominal pain and nausea. No change in appetite, vomiting, dysphagia, change in bowel frequency, diarrhea, constipation, bleeding, hematemesis, melena, hematochezia URINARY: No frequency, urgency, polyuria, dysuria, hematuria, or incontinence MUSCULOSKELETAL: No muscle weakness, joint stiffness, decrease in range of motion, redness, swelling NEUROLOGIC: No loss of sensation, numbness, tingling, tremors, weakness, paralysis, seizures HEMATOLOGIC: No anemia, easy bruising, bleeding, petechiae, or purpura ENDOCRINE: No hot or cold intolerance, sweating, polyuria, polydipsia or, polyphagia no thyroid problems PSYCHIATRIC: No change in mood, no anxiety, no depression ED Past Medical Hx - Past Medical History Previous Medical History?: Yes Hx Hypertension: No Hx GERD: Yes (PRN MEDS) Hx Liver Disease: Yes (FATTY LIVER) Hx Renal Disease: No Hx Asthma: No Hx HIV: No - Surgical History Hx Cholecystectomy: Yes Hx Breast Surgery: Yes (BX 1986,2008,2016,2017) - Social History Smoking Status: Never Smoker ED Physical Exam - General Limitations: No Limitations - Other Other exam information: GENERAL: Patient in no acute distress HEAD: Normocephalic, atraumatic EYES: PERRLA, EOM intact, no scleral icterus, no papilledema, no conjunctival hemorrhage, visual beebe and acuity wnl, NOSE: No tenderness, discharge, sinus tenderness MOUTH: No erythema, bleeding, exudate HEART: Regular rate and rhythm, no murmur, S1-S2 are auscultated, pulses are symmetric LUNGS: No wheezing, rales, rhonchi, bilateral breath sounds ABDOMEN: Mild suprapubic tenderness. Normal bowel sounds, no rebound, no guarding, no masses, no CVA tenderness MUSCULOSKELETAL: Normal joint range of motion, no redness, no swelling, no ten derness NEUROLOGIC: GCS 15, Alert and Oriented x3, Cranial nerves intact, normal sensation, normal strength, normal gait, no cerebellar deficit SKIN: Skin is warm and dry, no wounds, no rashes ED Course Vital Signs 10/13/18 10/13/18 10/13/18 14:59 16:37 17:48 Temperature 97.6 F Pulse Rate 82 84 Respiratory 20 18 17 Rate Blood Pressure 157/74 Blood Pressure [Left] Blood Pressure 125/64 [Right] O2 Sat by Pulse 95 100 Oximetry 10/13/18 10/13/18 18:38 21:50 Temperature Pulse Rate 74 77 Respiratory 17 18 Rate Blood Pressure Blood Pressure 117/64 [Left] Blood Pressure 168/64 [Right] O2 Sat by Pulse 100 97 Oximetry ED Medical Decision Making - Lab Data Result diagrams: 10/13/18 16:13 10/13/18 16:13 Laboratory Results - last 24 hr 10/13/18 16:13 WBC 9.7 RBC 4.51 Hgb 13.8 Hct 40.5 MCV 90 MCH 31 MCHC 34 RDW 14.2 Plt Count 209 Lymph % (Auto) 20.6 [place] % (Auto) 6.0 Eos % (Auto) 1.4 Baso % (Auto) 0.4 Lymph # 2.0 [place] # 0.6 Eos # 0.1 Baso # 0.0 Seg Neutrophils % 71.6 H Seg Neutrophils # 6.9 - Medical Decision Making At 1707 patient signed out to midlevel Ta who agrees to follow up on labs and CT results and re-evaluate. Critical care attestation.: If time is entered above; I have spent that time in minutes in the direct care of this critically ill patient, excluding procedure time. ED Disposition Is pt being admited?: No
[2018-10-13] MEDS ORDERED: TORADOL IV ONE (17:18)
[2018-10-13 17:21] LABS: Alanine Aminotransferase 18 units/L (7-56); Albumin 3.9 g/dL (3.9-5); BUN/Creatinine Ratio 15; Blood Urea Nitrogen 12 mg/dL (7-17); Hemolysis Index 3
[2018-10-13 17:40] LABS: Bilirubin,Urine NEG (Negative); Blood,Urine NEG (Negative); Color,Urine Yellow (Yellow); Protein,Urine <15 mg/dL mg/dL (Negative); Urobilinogen,Urine < 2.0 mg/dL (<2.0)
--- NOTE | 2018-10-13 18:56 | Cat Scan Report ---
CT ABDOMEN AND PELVIS WITH CONTRAST INDICATION: Pain CONTRAST: Unspecified dosage IV COMPARISON: 09/30/[address] scans at this location are performed using CT dose reduction for ALARA by means of automated e xposure control. FINDINGS: Lung bases are clear of infiltrates. Small cysts and probable cysts are seen in the liver. Gallbladder has been removed. No biliary dilatation is seen. Pancreas appears within normal limits. S mall bilateral renal cysts and probable cysts are noted. Appendix is not visualized. Mild increase in colonic stool burden is seen suggesting constipation. No evidence of bowel obstruction is seen. Smal l amount of nonspecific fluid is seen in the right colon. There is slight question of mild wall thick ening in the proximal right colon though without definite surrounding inflammation and this may be ar tifactual. No lymphadenopathy is seen. No free fluid is noted. IMPRESSION: Probable mild constipation. I would have difficulty excluding mild right colitis though p robably this is artifactual. Signer Name: Stephan Singh MD Signed: 10/13/2018 6:52 PM Workstation Name: [id number]
[2018-10-13] MEDS ORDERED: FLEET PR ONE (19:39)
[2018-10-13 21:51] VITALS: BP 117/64
== END 2018-10-13 21:51 | disposition home or self-care (01) ==
LOC: ED 14:53
DX: K59.00 Constipation, unspecified (principal); R10.2 Pelvic and perineal pain; K21.9 Gastro-esophageal reflux disease without esophagitis; K76.0 Fatty (change of) liver, not elsewhere classified; Z98.890 Other specified postprocedural states; Z90.49 Acquired absence of other specified parts of digestive tract; Z79.899 Other long term (current) drug therapy; Z88.6 Allergy status to analgesic agent; Z88.8 Allergy status to other drugs, medicaments and biological substances
CPT/HCPCS: 36415; 74177; 80053; 81001; 82140; 83690; 84484; 85025; 87040; 87086; 96365; 96366; 96375; 99284; J0696; J1885; J2405; J7030; J7040; Q9967

== ENCOUNTER 2018-10-17 10:17 | Outpatient (CLI) | payer BC, MEDICARE ==
--- NOTE | 2018-10-17 12:53 | Magnetic Resonance Report ---
MRI LEFT KNEE WITHOUT CONTRAST INDICATION: M25.562. PAIN IN LEFT KNEE. COMPARISON: None available. TECHNIQUE: Multiplanar, multisequence MR images were obtained. FINDINGS: ACL: Normal. PCL: Normal. DISTAL QUADRICEPS TENDON: Normal. PATELLAR TENDON: Normal. MEDIAL MENISCUS: There is a horizontal tear of the posterior horn and junctional zone of the medial m eniscus with a tiny 2 mm parameniscal cyst. LATERAL MENISCUS: Mild intrasubstance signal without discrete tear. POSTEROLATERAL CORNER: Normal. MCL: Normal. LCL: Normal. DISTAL BICEPS FEMORIS TENDON: Normal. POPLITEUS TENDON: Normal. DISTAL IT BAND: Normal. ARTICULAR CARTILAGE: Mild chondrosis with subchondral cystic change in the posterior aspect of the me dial tibial plateau. No focal full-thickness cartilage loss. JOINT SPACE: No significant joint effusion or synovitis. No popliteal cyst. INTRA-ARTICULAR BODIES: None. BONES: No bone marrow edema. No fracture. No osseous lesion. SOFT TISSUES: No acute findings. ADDITIONAL FINDINGS: None. IMPRESSION: 1. Horizontal tear of the posterior horn and junctional zone of the medial meniscus with tiny adjacen t para meniscal cyst. 2. Mild chondrosis in the medial femorotibial compartment. Signer Name: Ravi Galvan MD Signed: 10/17/2018 12:49 PM Workstation Name: [id number]
== END 2018-10-17 10:18 | disposition home or self-care (01) ==
LOC: MRI 10:17
PROVIDERS: ATTEND Orthopaedic Surgery
DX: S83.242A Other tear of medial meniscus, current injury, left knee, initial encounter (principal); X58.XXXA Exposure to other specified factors, initial encounter; Y93.89 Activity, other specified; Y92.89 Other specified places as the place of occurrence of the external cause; Y99.8 Other external cause status
CPT/HCPCS: 73721

== ENCOUNTER 2018-11-15 08:48 | Day surgery (SDC) | payer BC, MEDICARE ==
[~2018-11-15 08:48] MED LIST: ANCEF/STERILE WATER 2 GM/20 ML IV NR; DEPO-Medrol INTRA-ARTI ONE; MARCAINE-EPI/PF 0.5%-1:200,000 IJ ONE
--- NOTE | 2018-11-15 09:40 | Anesthesia Consultation ---
Anesthesia Consult and Med Hx Date of service: 11/15/18 - Airway Anesthetic Teeth Evaluation: Dentures (top) ROM Head & Neck: Adequate Mental/Hyoid Distance: Adequate Mallampati Class: Class II Intubation Access Assessment: Probably Good - Pulmonary Exam CTA: Yes - Cardiac Exam Cardiac Exam: RRR - Pre-Operative Health Status ASA Pre-Surgery Classification: ASA2 Proposed Anesthetic Plan: General - Pulmonary Hx Smoking: Yes (STOPPED 2001) Hx Respiratory Symptoms: No Hx Sleep Apnea: No (LILY PRE SCREEN LOW RISK) - Cardiovascular System Hx Hypertension: No Hx Heart Attack/AMI: No Hx Percutaneous Transluminal Coronary Angioplasty (PTCA): No Hx Cardia Arrhythmia: No - Central Nervous System Hx Neuromuscular Disorder: No Hx Seizures: No CVA: No - Gastrointestinal Hx Gastroesophageal Reflux Disease: Yes (controlled) - Endocrine Hx Renal Disease: No Hx Liver Disease: No (FATTY LIVER) Hx Insulin Dependent Diabetes: No Hx Non-Insulin Dependent Diabetes: No Hx Thyroid Disease: No - Other Systems Hx Cancer: Yes (Right Breast CA s/p mastectomy ) Hx Obesity: Yes - Additional Comments Anesthesia Medical History Comments: No hx anesthetic complications.
--- NOTE | 2018-11-15 09:41 | Anesthesia Day of Surgery ---
Anesthesia Day of Surgery - Day of Surgery Patient Examined: Yes Patient H&P Reviewed: Yes Patient is NPO: Yes
[2018-11-15] MEDS ORDERED: TYLENOL PO NR (10:00)
[2018-11-15] MEDS ORDERED: LACTATED RINGERS 1,000 ML IV SCH (10:00)
[2018-11-15] MEDS ORDERED: MARCAINE-EPI 0.5%-1:200,000 INFILTRATI ONE (11:10)
[2018-11-15] MEDS ORDERED: VERSED ONE (11:50)
[2018-11-15] MEDS ORDERED: XYLOCAINE MPF 2% ONE (11:51)
[2018-11-15] MEDS ORDERED: SUBLIMAZE ONE ×2 (11:51→12:46)
[2018-11-15] MEDS ORDERED: DIPRIVAN 10 MG/ML IV ONE ×2 (11:51→12:36)
[2018-11-15] MEDS ORDERED: MARCAINE-EPI/PF 0.5%-1:200,000 IJ ONE (12:33)
[2018-11-15] MEDS ORDERED: DEPO-Medrol INTRA-ARTI ONE (12:33)
[2018-11-15] MEDS ORDERED: NACL 0.9% IR ONE (12:33)
--- NOTE | 2018-11-15 13:10 | Procedure Note ---
Date of procedure: 11/15/18 Pre-op diagnosis: medial meniscus tear left knee Post-op diagnosis: same Procedure: Arthroscopy left knee partial medial meniscectomy with abrasion chondroplasty of the medial compartment Procedure The patient was brought to the OR placed in the OR table in supine position following induction and intubation by anesthesia the patient's left lower extremity was prepped and draped in the usual sterile manner.Atenolol procedure was done to identify the patient and the correct operative site. 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 Scope was then placed into the intercondylar notch. Anterior cr uciate ligament was seen and appeared to be intact next placing the leg in a figure for position of the lateral compartment was explored. The patient was noted to have mild scarring of the inner portion of the lateral meniscus D articular cartilage appeared normal and consistency the suprapatellar pouch was explored and no loose bodies or abnormalities were seen here next the arthroscope was then repositioned back into the medial compartment using the arthroscopic shaver. Posterior horn medial meniscus was then debrided back to healthy appearing articular cartilage the meniscal cartilage sorry D articular cartilage was also debrided The wound was copiously irrigated second look was done no residual bony and soft tissue debris was seen the arthroscope was then removed the stab wounds were repaired Marcaine and Depo-Medrol mixture was then injected intra-articularly with routine postoperative dressings were applied the patient tolerated the procedure Anesthesia: MAC Surgeon: KENTRELL MCKEON [employer] Instructor: CAROLINE RUSSELL Estimated blood loss: minimal Pathology: none Condition: stable Disposition: PACU
[2018-11-15] MEDS ORDERED: NORCO 5/325 PO PRN (13:49)
[2018-11-15] MEDS ORDERED: ZOFRAN IV PRN (13:54)
[2018-11-15] MEDS ORDERED: ZOFRAN ONE (13:54)
[2018-11-15] MEDS: SUBLIMAZE IV PRN ×2 (14:00→14:15)
[2018-11-15 14:39] VITALS: BP 138/57
--- NOTE | 2018-11-15 19:48 | Post Anesthesia Evaluation ---
- Post Anesthesia Evaluation Patient Participated: Yes Airway Patent: Yes Stable Respiratory Function: Yes Nausea/Vomiting: No Temp > 96.8F: Yes Pain Manageable: Yes Adequeate Hydration: Yes Anesthesia Complications: No Block Receding Appropriately: Not Applicable Patient on Ventilator: No
== END 2018-11-15 15:05 | disposition home or self-care (01) ==
LOC: OR 08:48
PROVIDERS: ATTEND Orthopaedic Surgery
DX: S83.242A Other tear of medial meniscus, current injury, left knee, initial encounter (principal); K21.9 Gastro-esophageal reflux disease without esophagitis; E66.9 Obesity, unspecified; F32.9 Major depressive disorder, single episode, unspecified; F41.9 Anxiety disorder, unspecified; Z87.891 Personal history of nicotine dependence; Z88.8 Allergy status to other drugs, medicaments and biological substances; Z79.899 Other long term (current) drug therapy; Z90.49 Acquired absence of other specified parts of digestive tract; Z68.31 Body mass index [BMI] 31.0-31.9, adult; Z85.3 Personal history of malignant neoplasm of breast; Z90.11 Acquired absence of right breast and nipple; Z90.710 Acquired absence of both cervix and uterus; Z87.440 Personal history of urinary (tract) infections; Z80.8 Family history of malignant neoplasm of other organs or systems; X58.XXXA Exposure to other specified factors, initial encounter; Y93.89 Activity, other specified; Y92.89 Other specified places as the place of occurrence of the external cause; Y99.8 Other external cause status
CPT/HCPCS: 29881; A4217; J0690; J1030; J2250; J2405; J2704; J3010; J7120; J1040

== ENCOUNTER 2018-12-28 11:49 | Outpatient (CLI) | payer BC, MEDICARE ==
[2018-12-28 12:27] LABS: Basophils # (Auto) 0.1 K/mm3 (0.0-0.1); Basophils % (Auto) 1.3 % (0.0-1.8); Eosinophils # (Auto) 0.1 K/mm3 (0.0-0.4); Eosinophils % (Auto) 1.6 % (0.0-4.3); Hematocrit 40.9 % (30.3-42.9); Hemoglobin 13.7 gm/dl (10.1-14.3); Lymphocytes # (Auto) 2.5 K/mm3 (1.2-5.4); Lymphocytes % (Auto) 36.6 % (13.4-35.0); Mean Corpuscular HGB Conc 34 % (30-34); Mean Corpuscular Volume 89 fl (79-97); Monocytes # (Auto) 0.5 K/mm3 (0.0-0.8); Monocytes % (Auto) 7.1 % (0.0-7.3); Platelet Count 218 K/mm3 (140-440); Red Blood Count 4.58 M/mm3 (3.65-5.03); Red Cell Distribution Width 14.2 % (13.2-15.2)
== END 2018-12-28 11:50 | disposition home or self-care (01) ==
LOC: LAB 11:49
PROVIDERS: ATTEND Internal Medicine Hematology & Oncology
DX: C50.411 Malignant neoplasm of upper-outer quadrant of right female breast (principal)
CPT/HCPCS: 36415; 85025; 86300

== ENCOUNTER 2019-04-23 14:01 | Outpatient (CLI) | payer MEDICARE ==
--- NOTE | 2019-04-23 14:45 | Mammography Report ---
DIGITAL SCREENING MAMMOGRAM WITH CAD, 04/23/2019 INDICATION: Routine screening mammography. Breast cancer survivor status post right mastectomy. TECHNIQUE: Digital left 2D mammography was obtained in the craniocaudal and mediolateral oblique pro jections. This examination was interpreted with the benefit of Computer-Aided Detection analysis. COMPARISON: 04/17/2018 FINDINGS: Breast Density: The breast is heterogeneously dense, which may obscure small masses. There is no evidence of dominant mass, suspicious calcifications or architectural distortion in the l eft breast. An inner biopsy clip. IMPRESSION: No mammographic evidence of malignancy. Follow up recommendation: Routine yearly BI-RADS Category 1: Negative. A "normal" or negative report should not discourage follow up or biopsy of a clinically significant f inding. A written summary of these findings will be mailed to the patient. The patient will be entered into a mammography reporting system which will generate a reminder letter for the patient's next appointmen t at the appropriate interval. The [employer] recommends yearly mammograms starting at age 40 and continuing as l jarod as a woman is in good health. Breast MRI is recommended for women with an approximate 20-25% or greater lifetime risk of breast cancer, including women with a strong family history of breast or ova isidro cancer or who have been treated for Hodgkin's disease. Signer Name: Matt Lewis MD Signed: 04/23/2019 2:40 PM Workstation Name: [id number]
== END 2019-04-23 14:02 | disposition home or self-care (01) ==
LOC: SPVWC 14:01
PROVIDERS: ATTEND Surgery
DX: Z12.31 Encounter for screening mammogram for malignant neoplasm of breast (principal); Z85.3 Personal history of malignant neoplasm of breast; Z90.11 Acquired absence of right breast and nipple

== ENCOUNTER 2020-04-28 13:23 | Outpatient (CLI) | payer MEDICARE ==
--- NOTE | 2020-04-28 17:27 | Mammography Report ---
DIGITAL SCREENING MAMMOGRAM WITH CAD, 04/28/2020 CLINICAL INFORMATION / INDICATION: Routine screening mammography. SCREENING MAMMOGRAM. Patient has hi story of right mastectomy. TECHNIQUE: Digital left 2D mammography was obtained in the craniocaudal and mediolateral oblique pro jections. This examination was interpreted with the benefit of Computer-Aided Detection analysis. COMPARISON: Prior mammograms 04/23/2019 and 04/17/2018 FINDINGS: Breast Density: There are scattered areas of fibroglandular density. No dominant mass, suspicious calcifications, or architectural distortion in the left breast. There is a stable biopsy clip in the left breast. There has been no significant change compared with the prior examinations. IMPRESSION: No mammographic evidence of malignancy. Follow up recommendation: Routine yearly BI-RADS Category 2: Benign. A "normal" or negative report should not discourage follow up or biopsy of a clinically significant f inding. A written summary of these findings will be mailed to the patient. The patient will be entered into a mammography reporting system which will generate a reminder letter for the patient's next appointmen t at the appropriate interval. The [employer] recommends yearly mammograms starting at age 40 and continuing as l jarod as a woman is in good health. Breast MRI is recommended for women with an approximate 20-25% or greater lifetime risk of breast cancer, including women with a strong family history of breast or ova isidro cancer or who have been treated for Hodgkin's disease. Signer Name: Santa Thomason MD Signed: 04/28/2020 5:22 PM Workstation Name: [id number]
== END 2020-04-28 13:24 | disposition home or self-care (01) ==
LOC: SPVWC 13:23
PROVIDERS: ATTEND Surgery
DX: Z12.31 Encounter for screening mammogram for malignant neoplasm of breast (principal)